=== PATIENT | female | born 1955 | race Caucasian/White ===

== ENCOUNTER 2024-06-03 10:43 | Inpatient (IN) ==
[2024-06-03 11:22] LABS: Basophils # (Auto) 0.01 K/mcL (0.00-0.30); Basophils % (Auto) 0.1 % (0.0-2.0); Eosinophils # (Auto) 0.14 K/mcL (0.00-0.70); Eosinophils % (Auto) 1.6 % (0.0-7.0); Hemoglobin 11.3 g/dL (11.2-15.7); Lymphocytes # (Auto) 0.64 K/mcL (1.50-4.80); Lymphocytes % (Auto) 7.2 % (15.5-49.0); Mean Cell Volume 88.5 fL (80.0-100.0); Mean Corpuscular HGB Conc 34.2 g/dL (31.0-36.0); Mean Platelet Volume 9.6 fL (8.8-12.5); Monocytes # (Auto) 0.61 K/mcL (0.10-0.90); Monocytes % (Auto) 6.9 % (1.0-12.0); Platelet Count 244 K/mcL (140-440); RBC 3.73 M/mcL (3.59-5.38); WBC 8.8 K/mcL (4.5-11.0)
[2024-06-03 11:58] LABS: Appearance,Urine Clear (Clear); Bacteria,Urine Rare /hpf (0); Bilirubin,Urine Negative (Negative); Color,Urine Yellow; Culture Indicated,Urine No; Glucose,Urine (UA) Negative (Negative); Ketones,Urine Negative (Negative); Leukocyte Esterase,Urine Negative /uL (Negative); Nitrate,Urine Negative (Negative); PH,Urine 5.5 (5.0-9.0); Protein,Urine Trace mg/dL (Negative); Specific Gravity,Urine 1.025 (1.000-1.035); Urine Blood Negative ery/mcL (Negative); Urine Hyaline Cast 2 /lph (0-2); Urine RBC 0 /hpf (0-3); Urine Squamous Epithelial Cell 6 /hpf (0-4); Urine WBC 1 /hpf (0-4); Urobilinogen,Urine Normal
[2024-06-03 12:01] LABS: ALT/SGPT 9 U/L (<40); AST/SGOT 31 U/L (<32); Albumin 3.6 gm/dL (3.2-5.2); Alkaline Phosphatase 65 U/L (39-117); Bilirubin,Total 0.4 mg/dL (0.1-1.0); Blood Urea Nitrogen 18 mg/dL (8-23); Calcium 8.9 mg/dL (8.6-10.4); Carbon Dioxide 28 mmol/L (22-30); Chloride 95 mmol/L (96-108); Globulin 3.5 gm/dL (2.2-3.7); Glomerular Filtration Rate 64; Glucose 108 mg/dL (70-105); Potassium 2.9 mmol/L (3.3-5.1); Sodium 133 mmol/L (133-145)
[2024-06-03] MEDS: 0.9 % SODIUM CHLORIDE 500 ML IV ONE ×2 (12:39→15:02)
[2024-06-03] MEDS: POTASSIUM CHLORIDE 40 MEQ in DEXTROSE 5% IN WATER 500 ML IV ONE (12:39)
[2024-06-03] MEDS: cefTRIAXone 2 GM in DEXTROSE 5% IN WATER 50 ML IV ONE (14:17)
[2024-06-03] MEDS: AZITHROMYCIN 500 MG in DEXTROSE 5% IN WATER 250 ML IV ONE (15:02)
[2024-06-03] MEDS ORDERED: POTASSIUM CHLORIDE 40 MEQ in DEXTROSE 5% IN WATER 500 ML IV PRN (18:05)
[2024-06-03] MEDS ORDERED: SENNOSIDES 1 TABLET PO PRN (18:05)
[2024-06-03] MEDS ORDERED: ONDANSETRON 4 MG/2 ML VIAL IV PRN (18:05)
[2024-06-03] MEDS ORDERED: POTASSIUM CHLORIDE 20 MEQ TABLET PO PRN (18:05)
[2024-06-03] MEDS ORDERED: IPRATROPIUM/ALBUTEROL 3 ML AMPUL.NEB NEB PRN (18:05)
[2024-06-03] MEDS ORDERED: MAGNESIUM SULFATE 2 GM/50 ML BAG IV PRN (18:05)
[2024-06-03] MEDS: cefTRIAXone 1 GM VIAL IV SCH (19:50)
[2024-06-03] MEDS: HYDROcodone/APAP 5/325MG TABLET PO PRN (19:51)
[2024-06-03] MEDS: OLANZapine 5 MG TABLET PO PRN (19:53)
[2024-06-03] MEDS: TAMSULOSIN 0.4 MG CAPSULE PO SCH (20:26)
[2024-06-03] MEDS: GABAPENTIN 300 MG CAPSULE PO SCH (20:26)
[2024-06-03] MEDS: MONTELUKAST 10 MG TABLET PO SCH (20:26)
[2024-06-03] MEDS: DOCUSATE SODIUM 100 MG CAPSULE PO SCH (20:26)
[2024-06-03] MEDS: 0.9 % SODIUM CHLORIDE 10 ML SYRINGE IV SCH (20:27)
[2024-06-04 06:33] LABS: Basophils # (Auto) 0.02 K/mcL (0.00-0.30); Basophils % (Auto) 0.3 % (0.0-2.0); Eosinophils # (Auto) 0.24 K/mcL (0.00-0.70); Eosinophils % (Auto) 3.2 % (0.0-7.0); Hematocrit 33.8 % (34.1-44.9); Hemoglobin 11.6 g/dL (11.2-15.7); Lymphocytes # (Auto) 0.77 K/mcL (1.50-4.80); Lymphocytes % (Auto) 10.3 % (15.5-49.0); Mean Cell Volume 89.4 fL (80.0-100.0); Mean Corpuscular HGB Conc 34.3 g/dL (31.0-36.0); Mean Platelet Volume 9.8 fL (8.8-12.5); Monocytes # (Auto) 0.48 K/mcL (0.10-0.90); Monocytes % (Auto) 6.4 % (1.0-12.0); Neutrophils % (Auto) 79.5 % (38.0-78.0); Platelet Count 264 K/mcL (140-440); RBC 3.78 M/mcL (3.59-5.38); Red Cell Distribution Width 12.1 % (11.5-14.5); WBC 7.5 K/mcL (4.5-11.0)
[2024-06-04 07:34] LABS: ALT/SGPT 9 U/L (<40); AST/SGOT 22 U/L (<32); Albumin 3.1 gm/dL (3.2-5.2); Albumin/Globulin Ratio 0.9 (1.0-2.3); Alkaline Phosphatase 63 U/L (39-117); Bilirubin,Direct < 0.2 mg/dL (0-0.3); Bilirubin,Total 0.3 mg/dL (0.1-1.0); Blood Urea Nitrogen 9 mg/dL (8-23); Calcium 8.7 mg/dL (8.6-10.4); Carbon Dioxide 25 mmol/L (22-30); Chloride 103 mmol/L (96-108); Globulin 3.3 gm/dL (2.2-3.7); Glomerular Filtration Rate 92; Glucose 103 mg/dL (70-105); Lactate Dehydrogenase 207 U/L (135-225); Potassium 3.2 mmol/L (3.3-5.1); Sodium 139 mmol/L (133-145); Triglycerides 72 mg/dL (<150); Uric Acid 5.4 mg/dL (2.5-8.0)
[2024-06-04] MEDS: OMEPRAZOLE 20 MG CAPSULE PO SCH (07:34)
[2024-06-04] MEDS: POLYETHYLENE GLYCOL 3350 17 GM PACKET PO PRN (08:11)
[2024-06-04] MEDS: VENLAFAXINE 75 MG CAP.XL.24H PO SCH (08:12)
[2024-06-04] MEDS: ENOXAPARIN 40 MG/0.4 ML SYRINGE SQ SCH (08:12)
[2024-06-04] MEDS: HYDROXYCHLOROQUINE 200 MG TABLET PO SCH (08:12)
[2024-06-04] MEDS: POTASSIUM CHLORIDE 20 MEQ TABLET PO PRN (08:13)
[2024-06-04] MEDS: AZITHROMYCIN 500 MG in DEXTROSE 5% IN WATER 250 ML IV SCH (09:13)
[2024-06-04] MEDS: VENLAFAXINE 150 MG CAP.XL.24H PO SCH (09:47)
[2024-06-05 06:23] LABS: ALT/SGPT 11 U/L (<40); AST/SGOT 20 U/L (<32); Albumin 3.2 gm/dL (3.2-5.2); Albumin/Globulin Ratio 0.9 (1.0-2.3); Alkaline Phosphatase 58 U/L (39-117); Bilirubin,Direct < 0.2 mg/dL (0-0.3); Bilirubin,Total 0.3 mg/dL (0.1-1.0); Blood Urea Nitrogen 7 mg/dL (8-23); C-Reactive Protein 9.62 mg/dL (0.03-0.80); Carbon Dioxide 27 mmol/L (22-30); Chloride 105 mmol/L (96-108); Globulin 3.4 gm/dL (2.2-3.7); Glomerular Filtration Rate 97; Glucose 93 mg/dL (70-105); Lactate Dehydrogenase 180 U/L (135-225); Phosphorous 3.4 mg/dL (2.5-4.5); Potassium 3.6 mmol/L (3.3-5.1); Sodium 141 mmol/L (133-145); Triglycerides 91 mg/dL (<150); Uric Acid 4.8 mg/dL (2.5-8.0)
[2024-06-05] MEDS: busPIRone 15 MG TABLET PO SCH (10:10)
[2024-06-05] MEDS: ATOGEPANT 60 MG PO SCH (10:12)
[2024-06-05] MEDS: FLUTICASONE FUROATE INH SCH (10:12)
[2024-06-05] MEDS: VILANTEROL INH SCH (10:12)
[2024-06-05] MEDS ORDERED: SIMVASTATIN 20 MG TABLET PO SCH (21:00)
== END 2024-06-05 11:40 | disposition home or self-care (01) | DRG 193 ==
LOC: ED 10:43 → MEDSUR 17:45
PROVIDERS: ADMIT Internal Medicine; ATTEND Internal Medicine